=== PATIENT | female | born 1960 | race Caucasian/White ===

== ENCOUNTER → 2016-12-19 | Outpatient (CLI) | payer OTHER ==
--- NOTE | ~2016-12-19 | XA31 ---
[facility] A Service of [facility] RADIOLOGY TEXT RESULTS PATIENT: EVIN WARE [facility] 56 UN[facility] #: [id number] AGE: [address]: Alfa Jurado MD SEX: F ORDER DR: [id number] [facility] [address] [place], [place] [address] [id number] O MR#: [id number] Acc #: [id number] NAME: EVIN WARE : 1960 SEX: F STUDY DATE/TIME: 12/19/2016 10:30 UNIT: [facility] ROOM: STUDY DESCRIPTION: XA Arthrocentesis Small Joint Attending Physician: Alfa Jurado M.D. Referring Physician: Alfa Jurado M.D. Ordering Physician: Alfa Jurado M.D. Primary Care Physician: Cande Whiteside M.D. MEDICAL IMAGING REPORT This report is preliminary unless electronic signature is present EXAM Left acromioclavicular joint injection, 12/19/2016 HISTORY Shoulder pain. PROCEDURE Informed consent was obtained. Skin site was selected with fluoroscopic guidance and marked, sterilely prepped and draped and locally anesthetized. A 25 gauge needle was advanced into the acromioclavicular joint and 40 mg of Depo-Medrol and 1 mL of 0.5% Bupivacaine were injected. There were no complications and the patient tolerated the procedure well. Patient reported a pre-procedure pain level of 10 out of 10 and postprocedure pain level of the 0 out of 10. IMPRESSION Successful left acromioclavicular joint injection with Depo-Medrol and Marcaine. Pre-procedure pain level 10 of 10, postprocedure pain level 0 of 10. 0.9 minutes of fluoroscopy and 5 spot images obtained. Dictated by... Marcos Tomlinson M.D. THIS IS AN ELECTRONICALLY VERIFIED REPORT Marcos Tomlinson M.D. at 12/20/2016 3:35 PM ALLYSON/[email or web address] TD: 12/20/2016 03:08 [facility] A Service of [facility] RADIOLOGY TEXT RESULTS PATIENT: EVIN WARE LOCATION: [facility] #: [id number] : 56 UNIT #: [id number] AGE: [address]: Alfa Jurado MD SEX: F ORDER DR: SPENCER #: [id number] MEDICAL IMAGING REPORT COPY
== END | disposition home or self-care (01) ==
LOC: CIVR 10:05
PROC: 3E0U33Z Introduction of Anti-inflammatory into Joints, Percutaneous Approach (ICD-10-PCS; principal; 2016-12-19)
PROC: 3E0U3BZ Introduction of Anesthetic Agent into Joints, Percutaneous Approach (ICD-10-PCS; 2016-12-19)
DX: M25.512 Pain in left shoulder (principal)
CPT/HCPCS: 77002; J1030; Q9967